=== PATIENT | male | born 2000 | race Caucasian/White ===

== ENCOUNTER 2025-02-18 09:11 | Outpatient (AMB) | payer MEDICAID, SELFPAY ==
[2025-02-18 09:19] VITALS: BP 104/74; PULSE 74; RESP 16; TEMP 36.7; O2SAT 99; BMI 23.3
--- NOTE | 2025-02-18 09:19 | MHC.PC.OV ---
Vital Signs 02/18/25 09:19 Height 5 ft 11 in Weight 166 lb 12.8 oz BMI 23.3 BP 104/74 Blood Pressure Location Lt brachial Position Sitting Respiration 16 Pulse 74 Pulse Source Pulse Oximeter Temp 98.0 F Temp Source Oral Pulse Oximetry (%) 99 Oxygen Delivery Method Room Air Intake Visit Reasons: Establish Care Intake Note: Patient is a new patient here to establish care. Transfer[facility] from [facility] in [place], [place]. Medical records have not been requested and have not been received. Patient completed Authorization to Release Medical Information form today. 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 Accompanied by: Mother Allergies No Known Allergies Allergy (Verified 02/18/25 09:53) Medication List - Last Reconciled 02/18/25 by NICOLASA Mayes fexofenadine (Shruthi Allergy) 180 mg PO DAILY Tobacco use date assessed: 02/18/25 Dental Screening Dental Screen Date: 02/18/25 Did you have a dental visit in the last 12 months?: Yes Did you have a dental problem in the last 6 months where you did not have access to dental care?: No Was dental information given to patient?: Patient has dentist HPI Establish Care HPI Details Previous PCP: [facility], [place], [place] Last visit: 2022 Last PE:same Specialist: OBGYN:n/a Past medical history: spectrum and allergies Medications: Family HX: mother, father, and sister asthma, paternal grandmother heart problem, open heart surgery, esrd, maternal mother liver cancer and fibromyalgia Problem: The patient is a 24-year-old male presenting to [facility]. The patient is accompanied by his mother, who reports that the patient is on the spectrum. The patient has concerns regarding seasonal allergic rhinitis. These symptoms are particularly prominent during pollen seasons, requiring intermittent use of antihistamines such as Shruthi, Zyrtec, and Benadryl when is severe. The patient reports that certain medications lose efficacy over time, necessitating rotation of antihistamines. The patient's history is negative for asthma; however, a family history of asthma is present. He also reports problems of constipation from an early age but has been doing well. Per the patient mother, the patient at times, mixes up if he is having constipation or diarrhea. They report stomach symptoms like gas and constipation/diarrhea with milk products. The patient mother has adjusted his diet to manage these issues. The patient mother reports that she will drop off a form for the patient to be filled out so he could continue to get rides to school. The patient denies sob, chest pain, heart palpitation or dizziness. He denies any change in bowel habits and no urinary symptoms. The patient requested a referral to an allergies, stating that she they have 3 dogs and one cat. [facility] Medical History (Updated 02/21/25 @ 15:18 by NICOLASA Mayes) Autism spectrum Multiple environmental allergies Surgical History (Updated 02/18/25 @ 10:57 by NICOLASA Mayes) H/O heart surgery No pertinent past surgical history Family History (Updated 02/18/25 @ 10:59 by NICOLASA Mayes) Mother Asthma Anxiety Depression Father Asthma Maternal Grandmother Liver cancer Paternal Grandmother Non-Hodgkin lymphoma End stage renal disease Heart disease Brother ADHD Sister Asthma Other FH: mental illness Fibromyalgia Social History (Updated 02/18/25 @ 09:31 by Edith Mann [facility]) Household Members: Family Both parents involved: Yes Housing: House Alcohol intake: never Patient Tobacco Use Status: Never used Tobacco e-Cigarette/Vaping Use: Never Used service: No Current occupational status: employed and student Current occupation: [employer]; Majoring in Theater at [employer] Cognitive needs: No Hearing needs: No Vision needs: Yes (Glasses) Questionnaire PHQ-9 Over the last 2 weeks, how often have you been bothered by any of the following problems? 1. Little interest or pleasure in doing things: not at all 2. Feeling down, depressed, or hopeless: not at all 3. Trouble falling or staying asleep, or sleeping too much: not at all 4. Feeling tired or having little energy: not at all 5. Poor appetite or overeating: not at all 6. Feeling bad about yourself - or that you are a failure or have let yourself or your family down: not at all 7. Trouble concentrating on things, such as reading the newspaper or watching television: not at all 8. Moving or speaking so slowly that other people could have noticed. Or the opposite - being so fidgety or restless that you have been moving around a lot more than usual: not at all 9. Thoughts that you would be better off or of hurting yourself in some way: not at all Total score: 0 Depression Screening Interpretation: Negative Depression Screening Done: Yes 54191 - PHQ-9 Billing: Yes Source: Developed by Drs. Farhat Pineda, Milena Davis, Ben Palumbo and colleagues, with an educational hui from [employer]. Thrive Questionnaire Date Thrive assessed: 02/18/25 I am a: Patient What is your living situation today?: I have a steady place to live Within the past 12 months, did the food you bought not last and you didn't have the money to get more?: Never true Within the past 12 months, did you worry whether your food would run out before you got money to buy more?: Never true Do you have trouble paying for medicines?: No Do you have trouble getting transportation to medical appointments?: No Do you have trouble paying your heating and electricity bill?: No Do you have trouble taking care of your child, family member or friend?: No Do you have trouble with day-to-day activities such as bathing, preparing meals, shopping, managing finances, etc.?: No Are you currently unemployed and looking for a job?: No Are you interested in more education?: No Please select the resources that you would like help with: None Currently or been in a relationship where the following occur: No concerns reported THRIVE Score: 0 AUDIT C Alcohol Use Questionnaire (AUDIT-C) 1. How often do you have a drink containing alcohol?: Never 3. How often do you have six or more drinks on one occasion?: Never Total Score: 0 Score Reviewed/Action Taken: No JOSE DANIEL-7 AMB Questionnaire JOSE DANIEL-7 Date JOSE DANIEL - 7 assessed: 02/18/25 Feeling nervous, anxious, or on edge: 0 = Not at all Not being able to stop or control worryin = Not at all Worrying too much about different things: 0 = Not at all Trouble relaxin = Not at all Being so restless that it is hard to sit still: 0 = Not at all Becoming easily annoyed or irritable: 0 = Not at all Feeling afraid as if something awful might happen: 0 = Not at all Total JOSE DANIEL-7 score (0-4 normal; 5-9 mild; 10-14 moderate; 15-21 severe): 0 Source: Developed by Drs. Farhat Pineda, Milena Davis, Ben Palumbo and colleagues, with an educational hui from [employer]. JOSE DANIEL-7 Assessment Billing JOSE DANIEL-7 Assessment Tool: JOSE DANIEL-7 Assessment 70317 Review of Systems Const Denies headache(s) Eyes Denies loss of vision ENT Denies vertigo, Denies dizziness, Denies headache(s), Reports nasal congestion (on and off), Denies sore throat and Reports other (sneezing on and off) Card Denies chest pain, Denies leg edema and Denies lightheadedness Resp Denies cough, Denies hemoptysis and Denies wheezing GI Denies abdominal pain, Denies melena, Reports constipation (on and off), Denies diarrhea and Denies vomiting Denies dysuria, Denies urinary frequency and Denies urinary urgency Musc Denies arthralgias, Denies joint swelling, Denies numbness and Denies tingling Neuro Denies Abnormal speech present, Denies behavioral changes, Denies vertigo, Denies dizziness, Denies headache(s), Denies loss of vision, Denies memory loss, Denies numbness and Denies tingling Psych Denies anxiety, Denies behavioral changes, Denies depression, Denies memory loss and Denies panic attacks Elder/Lymph Denies easy bleeding and Denies easy bruising Aller/Immun Denies wheezing Physical exam (Primary Care) Vital Signs: Last Vital Signs Temp 98.0 F 02/18/25 09:19 Pulse 74 02/18/25 09:19 Resp 16 02/18/25 09:19 BP 104/74 02/18/25 09:19 Pulse Ox 99 02/18/25 09:19 Oxygen Delivery Method Room Air 02/18/25 09:19 BMI result Body Mass Index 23.3 Tobacco/Smoking Status: Tobacco use Status Tobacco use date assessed 02/18/25 02/18/25 09:34 Patient Tobacco Use Status Never used Tobacco 02/18/25 09:34 e-Cigarette/Vaping Use Never Used 02/18/25 09:34 PHQ-9: PHQ-9 Score PHQ-9: Total score 0 02/18/25 14:55 Depression Screening Interpretation: Negative Thrive Assessment: Date of Thrive Assessment Date Thrive assessed 02/18/25 02/18/25 09:34 Currently or been in a relationship where the following occur: No concerns reported Const General: healthy appearing, no acute distress, alert and awake Nutritional Appearance: well nourished Orientation/consciousness: oriented to person, oriented to place and oriented to time HENMT Ears: TM's normal bilaterally and Abnormal EAC present excessive cerumen bilateral General nose exam: Normal nasal mucous membranes and turbinates present Eyes Conjunctivae: conjunctivae normal Sclerae: sclerae normal Pupils: Equal, round and reactive pupils present Neck Neck: Yes no lymphadenopathy and Yes no JVD Thyroid: Thyroid normal Carotids: no bruits Resp Effort & Inspection: normal respiratory effort and not tachypneic Auscultation: no crackles, no rales, no rhonchi and no wheezes Cardio Rate: regular rate Rhythm: regular rhythm Heart sounds: no murmurs and normal S1 and S2 GI Palpation (GI): Soft to palpation, nontender, no hepatomegaly and no splenomegaly Auscultation: normal bowel sounds Skin General skin exam: no rashes or lesions noted and dry skin Neuro General: oriented to person, oriented to place and oriented to time Cranial nerves: Yes Equal, round and reactive pupils present Speech: No Abnormal speech present Gait exam (Neuro): Normal gait present Motor exam (neuro): no tremor noted Extrem Right upper extremity: full ROM Left upper extremity: full ROM Right lower extremity: full ROM; no edema Left lower extremity: full ROM; no edema Psych Mental Status: mental status grossly normal Speech and movement: Normal speech and movement present Affect: normal affect Attitude: cooperative Thought process: Normal thought process present Coding Level of Care Code New Pt Level 4 (30318) Diagnoses Autism spectrum F84.0 Multiple environmental allergies Z91.09 Constipation, unspecified constipation type K59.00 Constipation type: unspecified constipation type Additional Codes JOSE DANIEL-7 Assessment Billing - JOSE DANIEL-7 Assessment Tool: JOSE DANIEL-7 Assessment 54550 ([id number]) PHQ-9 - 37891 - PHQ-9 Billing: Yes ([id number]) Time Spent (min) 39 Assessment & Plan Assessment & Plan (1) Autism spectrum: Code(s): F84.0 - Autistic disorder Category: Medical (2) Multiple environmental allergies: Code(s): Z91.09 - Other allergy status, other than to drugs and biological substances Category: Medical (3) Constipation: Code(s): K59.00 - Constipation, unspecified Category: Medical Qualifiers: Constipation type: unspecified constipation type Qualified Code(s): K59.00 - Constipation, unspecified Plan Plans were made to address the patient?s seasonal allergic rhinitis by reinforcing the importance of rotating antihistamines, and the referral to an unclaimed property officer was discussed for allergy testing. We also reviewed the patient?s need for continuous symptom monitoring in relation to pet exposure at home. The importance of understanding diet-related triggers in managing the patient's constipation was highlighted and steps were discussed to ensure that symptoms remain under control by moderating lactose intake. Preparation for fasting blood work for the next appointment was confirmed. Patient was informed and verbally consented to the use of an ambient scribe for clinic note documentation during this visit. Orders: Orders Complete Blood Count Auto Diff 02/18/25 Z00.00 - Encounter for general adult medical examination without abnormal findings, Z91.09 - Other allergy status, other than to drugs and biological substances Comprehensive [place]. Panel Fast 02/18/25 Z. - Encounter for general adult medical examination without abnormal findings, Z91.09 - Other allergy status, other than to drugs and biological substances UA CC w/rflx Micro + Cult 02/18/25 Z.00 - Encounter for general adult medical examination without abnormal findings, Z91.09 - Other allergy status, other than to drugs and biological substances Glucose Fasting 02/18/25 Z.00 - Encounter for general adult medical examination without abnormal findings, Z91.09 - Other allergy status, other than to drugs and biological substances TSH reflex Free T4 1 Year Z. - Encounter for general adult medical examination without abnormal findings UA CC w/rflx Micro + Cult 1 Year Z.00 - Encounter for general adult medical examination without abnormal findings Glucose Fasting 1 Year Z.00 - Encounter for general adult medical examination without abnormal findings Lipid Panel 02/18/25 Z. - Encounter for general adult medical examination without abnormal findings, Z91.09 - Other allergy status, other than to drugs and biological substances TSH reflex Free T4 02/18/25 Z. - Encounter for general adult medical examination without abnormal findings, Z91.09 - Other allergy status, other than to drugs and biological substances Vitamin D 25-OH Total 02/18/25 Z.00 - Encounter for general adult medical examination without abnormal findings, Z91.09 - Other allergy status, other than to drugs and biological substances Complete Blood Count Auto Diff 1 Year Z00.00 - Encounter for general adult medical examination without abnormal findings Comprehensive [place]. Panel Fast 1 Year Z00.00 - Encounter for general adult medical examination without abnormal findings Lipid Panel 1 Year Z00.00 - Encounter for general adult medical examination without abnormal findings Vitamin D 25-OH Total 1 Year Z00.00 - Encounter for general adult medical examination without abnormal findings Referrals Allergy & Immunology Referral Z91.09 - Other allergy status, other than to drugs and biological substances
--- OUTSIDE RECORDS SUMMARY | 2025-02-18 10:00 | XMS_ITS | Encounter Summary ---
Author Organization [facility] Address [address] [place] [address] Phone Care Team Providers Care Chief Inspector Name Role Phone Nnamdi Cantrell MD Primary Care Provider [phone] Reason for Visit * Reason Onset Date Comments Med Refill 11/28/2022 Encounter Details Date Type Department Care Team (Late st Contact Info) Description 11/28/2022 Refill [facility] [place] [address] [place] [address] Nnamdi Cantrell MD [address] [place] [address] Social History Tobacco Use Types Packs/Day Years Used Date Smoking Tobacco: Never Assessed Hunger/Food Answer Date Recorded In the last 12 months, did y ou or your family ever eat less than you felt you should because there wasn't enough money for food? No 06/28/2021 Stable Housing Answer Date Recorded Are you worried that in the next 2 months you may not have stable housing? No 06/28/2021 Transportation Concerns Answer Date Rec orded In the last 12 months, have you or your family ever had to go without healthcare because you didn't have a way to get there? No 06/28/2021 Hazards in Home Answer Date Recorded Think about the place you li ve. Do you have problems with any of the following? Pests (mice or roaches), mold, no/not working smoke detectors, water leaks, no window guards. No 2020 Financing Utilities Answer Date Recorde d In the last 12 months, has t he electric, gas, oil, or water company threatened to shut off your services in your home? No 06/28/2021 Safety at Home Answer Date Recorded Are you or your family worried about feeling saf e in your home? No 06/28/2021 Outside Support Answer Date Recorded Do you feel that you need mo re support from other people or programs to help you care for yourself or your family? No 06/28/2021 Understanding Health Concerns Answer Da te Recorded Do you need help understandi ng your or your child's healthcare needs (diagnosis, medications, plan, etc.)? No 06/28/2021 Financing Health Concerns Answer Date R ecorded In the last 12 months, was t here a time when your child needed to see a doctor or get medications or supplies but could not because of cost? No 06/28/2021 Missing School or Work Answer Date Lamont rded Did you or your child miss s chool or work because of a health problem that could have been avoided? No 06/28/2021 Sex and Gender Information Value Date Recorded Sex Assigned at Not on file Legal Sex Male 3:58 PM EDT Gender Identity Male 06/28/2021 7:52 PM EDT Sexual Orientation Straight 06/29/2021 10 :05 AM EDT documented as of this encounter Plan of Treatment Not on file documented as of this encounter Goals Goal Patient Goal Type Associated Problems Recent Progress Patient-Stated? Author Patient will have all the supports needed at school Care Plan Patient/family needs help getting support/services at school Meme Pedroza documented as of this encounter Visit Diagnoses Not on filedocumented in this encounter Additional Health Concerns Active Problems Noted Date Diagnosed Date Patient/family needs help gasper sandhuing support/services at school 07/25/2021 documented as of this encounter Care Teams Chief Inspector Relationship Specialty [place] [address] [place] [address] [place] [address] PCP - General Pediatrics 04/24/21 09/15/24 documented as of this encounter
--- OUTSIDE RECORDS SUMMARY | 2025-02-18 10:00 | XMS_ITS | Clinical Summary ---
Author Organization [facility] Address [address] [place] [id number] Phone Care Team Providers Care Didactic Program In Dietetics Director Name Role Phone Unavailable Primary Care Provider Unavailabl e Allergies No known active allergies Medications montelukast 10 MG tablet Take 10 mg by mouth nightly. Active Cetirizine HCl (ZYRTEC PO) Take by mouth. Act heather adapalene (Differin) 0.1 % creamIndications :Acne, unspecified acne type Use every other night on dry skin for 2-3 weeks and then every night if tolerating well 45 g 3 1 Active montelukast (Singulair) 10 MG tabletIndication s:Allergic rhinitis, unspecified seasonality, unspecified trigger Take 1 tablet (10 mg total) by mouth nightly. 30 tablet 11 1 Active Active Problems Problem Noted Date Diagnosed Date Other constipation 07/04/2022 Assessment & Plan (07/04/2022 9:49 AM EDT): Frequent hard stools. Metamucil 2 tsp daily--or 1 teaspoon 2x daily Counseling and coordination of care 07/25/2021 Autism spectrum disorder Overview (06/25/2021): noted in record from filling machine operator in [place] Assessment & Plan (07/04/2022 10:05 AM EDT): Update: High functioning & doing very well [facility] Program at [facility] Assessment & Plan (06/29/2021 10:47 AM EDT): Update: ?? Starting 12 th grade [employer]. Needs to be set up for IEP ?? Will also refer to [facility] for updated evaluation and recommendations ?? Mom to talk to special ed director at [employer] to set up IEP ?? Will also refer to our medical in home baby sitter to see about community resources ?? [facility] [employer] [facility] Allergic rhinitis Overview (06/25/2021): at well visit 10-20 in [facility]- recommended Flonase NS, Zyrtec and Singulair Assessment & Plan (07/04/2022 9:47 AM EDT): Shruthi (fexofenadine) 180 mg daily Saline in metal can, 2x daily then blow nose Flonase 2 sprays per nostril once daily Assessment & Plan (06/29/2021 10:49 AM EDT): Update: Doing okay With Flonase, Cetirizine and Montelukast.. No hx of asthma Plan: will continue with current medication. If not doing well can refer to allergy Resolved Problems Problem Noted Date Diagnosed Date Resolved Date Acne 07/28/2020 07/04/2022 Overview (06/25/2021): at well visit 10-20 [place]- recommended Adapalene 0.1% cream, Clindamycin 1% gel Assessment & Plan (06/29/2021 10:50 AM EDT): Doing well. Will refill Adapalene 0.1% cream and Clindamycin gel 1% Immunizations Immunization Administration Dates Next Due DTaP 12/03/2006, 4,08/03/2003,05/06,01/29/2003 HPV Vaccine 9 Valent 06/29/2021,08/10/2020,08/07 Hep A, ped/adol 06/05/2010,12/31/2007 Hep B, ped/adol 04/21/2004,05/06/2003,01/29/2003 HiB 04/21/2004,05/06/2003,01/29/2003 IPV 12/03/2006, 4,05/06/2003,01/29 Influenza, injectable,patricia valent, preservative free, pediatric 08/10/2020,08/07/2019,11/14/2012,07/03 MMR 12/03/2006,04/21/2004 Meningococcal B Bexsero 08/10/2020,08/07/2019 Meningococcal Conj (Menactra) MCV4P 08/07/2019,0 02/14/2016 Tdap 06/29/2021,02/14/2016 Varicella 12/31/2007,06/21/2005 Family History Medical History Relation Name Comments Depression Maternal Grandfather Hypertension Maternal Grandmother Liver cancer Maternal Grandmother ADD / ADHD Mother Depression Mother Diabetes Paternal Grandmother Hypertension Paternal Grandmother Relation Name Status Comments Maternal Grandfather Maternal Grandmother Mother Paternal Grandmother Social History Tobacco Use Types Packs/Day Years [...] Orientation Straight 06/29/2021 10 :05 AM EDT Last Filed Vital Signs Vital Sign Reading Time Taken Comments Blood Pressure 118/62 07/04/2022 9:31 AM EDT Pulse 82 07/04/2022 9:31 AM EDT Temperature 36.9 ??C (98.4 ??F) 07/04/2022 9:31 AM ED T Respiratory Rate - - Oxygen Saturation 99% 07/04/2022 9:31 AM EDT Inhaled Oxygen Concentration - - Weight 77.3 kg (170 lb 6.4 oz) 07/04/2022 9:31 A M EDT Height 177.2 cm (5' 9.76 ) 07/04/2022 9:31 AM ED T Body Mass Index 24.62 07/04/2022 9:31 AM EDT Plan of Treatment Health Maintenance Due Date Last Done Comments Influenza Vaccines (#1) 2024 08/10/20 20, 08/07/2019, 11/14/2012, Additional history exists COVID-19 Vaccine ( season) 2024 DTaP,Tdap,and Td Vaccines (8 - Td or Tdap) 06/29/2031 06/29/2021, 02/14/2016, 12/03/2006, Additional history exists HIB Vaccines Completed 04/21/2004, 04/27, 01/29/2003 Hepatitis B Vaccines Completed 04/21/2004, 05/06/2003, 01/29/2003 IPV Vaccines Completed 12/03/2006, 03/29, 05/06/2003, Additional history exists MMR Vaccines Completed 12/03/2006, 04/21/2004 Varicella Vaccines Completed 12/31/2007, 06/21/2005 Hepatitis A Vaccines Completed 06/05/2010, 12/31/19 08 Meningococcal Vaccine Completed 08/07/2019, 016 Men B Vaccine Completed 08/10/2020, 08/07/2019 HPV Vaccines Completed 06/29/2021, 07/28, 08/07/2019 Pneumococcal Vaccine Aged Out No long er eligible based on patient's age to complete this topic Goals Goal Patient Goal Type Associated Problems Recent Progress Patient-Stated? Author Patient will have all the supports needed at school Care Plan Patient/family needs help getting support/services at school Meme Pedroza Additional Health Concerns Active Problems Noted Date Diagnosed Date Patient/family needs help ge tting support/services at school 07/25/2021 Insurance [employer]BS BLUE CARD OUT OF STATE
== END 2025-02-18 10:14 | disposition home or self-care (01) ==
LOC: HO.HMCH 09:14
DX: F84.0 Autistic disorder (principal); Z91.09 Other allergy status, other than to drugs and biological substances; K59.00 Constipation, unspecified

== ENCOUNTER → 2025-02-18 09:11 | Outpatient (BNVA) | payer MEDICAID, SELFPAY | DX: Z76.89 Persons encountering health services in other specified circumstances (principal); F84.0 Autistic disorder; K59.00 Constipation, unspecified; Z91.09 Other allergy status, other than to drugs and biological substances | CPT/HCPCS: 96127; 99202 ==